=== PATIENT | male | born 1935 | race Hispanic/Latino ===

== ENCOUNTER 2017-06-06 07:54 | Day surgery (SDC) | payer MEDICARE, BC ==
[2017-05-30 15:07] VITALS: BMI 22.2
[2017-06-06] MEDS ORDERED: Propofol 10 mg/ml Inj (20 ML) ONE (09:02)
[2017-06-06] MEDS ORDERED: ePHEDrine 50 mg/ml Inj ONE (09:15)
[2017-06-06] MEDS ORDERED: Phenylephrine 10 mg/ml Inj ONE ×2 (09:15→09:57)
[2017-06-06] MEDS ORDERED: Sodium Chloride 0.9% 1,000 ML IV SCH (10:15)
[2017-06-06 10:54] LABS: BLOOD UREA NITROGEN 18 mg/dL (7-21); CARBON DIOXIDE 26 mmol/L (21-33); CHLORIDE 104 mmol/L (98-107); GFR AFRICAN-AMERICAN > 60; GLUCOSE,RANDOM 112 mg/dL (70-110); POTASSIUM 4.2 mmol/L (3.6-5.0); SODIUM 140 mmol/L (132-148)
[2017-06-06 10:59] VITALS: BP 136/75; PULSE 60; RESP 16; TEMP 98.1; O2SAT 98
--- NOTE | 2017-06-06 22:51 | CARD ---
APPROVED REPORT EKG Measurement Heart [id number] <Conclusion> Atrial fibrillation Abnormal ECG
== END 2017-06-06 11:18 | disposition home or self-care (01) ==
LOC: ENDO 07:54
PROVIDERS: ATTEND Internal Medicine Gastroenterology
DX: C20 Malignant neoplasm of rectum (principal); D12.4 Benign neoplasm of descending colon; D12.5 Benign neoplasm of sigmoid colon; D12.3 Benign neoplasm of transverse colon
CPT/HCPCS: 36415; 45385; 80048; 88305; 93005; J2370; J2704; J7040 ×2